=== PATIENT | female | born 1960 | race Caucasian/White ===

== ENCOUNTER 2024-11-19 17:44 | Emergency (ER) | payer MEDICARE, MEDICAID ==
[~2024-11-19] VITALS: Ht 147.3 cm; Wt 69.0 kg
[~2024-11-19 17:44] MED LIST: ATOR20TA MT; NITR-87 MT
[2024-11-19 17:48] VITALS: BP 157/75; RESP 16; TEMP 36.8; O2SAT 99
[2024-11-19 17:52] VITALS: PULSE 66; O2SAT 96
[2024-11-19] MEDS: FLUORESCEIN SODIUM 1MG/STRIP LEFTEYE ONE (20:49)
[2024-11-19] MEDS: TETRACAINE 0.5% OPHTH DROPS 4ML RIGHTEYE ONE (20:49)
[2024-11-19 20:54] LABS: BASOPHILS % 0.5 % (0.0-2.0); EOSINOPHILS % 1.5 % (0.0-5.0); HEMATOCRIT. 40.3 % (36.0-48.0); HEMOGLOBIN. 13.7 g/dL (12.0-16.0); LYMPHOCYTES % 38.7 % (20.0-50.0); MEAN CORPUSCULAR HGB CONC 33.9 g/dL (31.0-37.0); MEAN CORPUSCULAR VOLUME 85.7 fL (81.0-99.0); MEAN PLATELET VOLUME 9.4 fl (7.4-10.4); MONOCYTES % 7.5 % (2.0-8.0); NEUTROPHILS % 51.8 % (40.0-76.0); PLATELET 292 x1000/uL (130-400); RED CELL DISTRIBUTION WIDTH 14.5 % (11.6-14.6); WHITE BLOOD COUNT 7.7 x1000/uL (4.5-11.0)
[2024-11-19 21:03] LABS: CHLORIDE 104 mEq/L (98-107); POTASSIUM 4.1 mEq/L (3.5-5.1); SODIUM 141 mEq/L (136-145)
[2024-11-19 21:05] LABS: CALCIUM 9.7 mg/dL (8.7-10.4); CARBON DIOXIDE 30 mEq/L (21-32)
[2024-11-19 21:10] LABS: CREATININE 0.8 mg/dL (0.6-1.0); GLUCOSE 112 mg/dL (70-105); UREA NITROGEN BLOOD 11 mg/dL (9-23)
[2024-11-19 21:12] LABS: ALANINE AMINOTRANSFERASE 21 IU/L (10-49); ALBUMIN 4.3 g/dL (3.2-4.8); ASPARTATE AMINOTRANSFERASE 30 IU/L (<34); BILIRUBIN TOTAL 0.4 mg/dL (0.1-1.0); PROTEIN TOTAL 7.9 g/dL (6.0-8.3)
[2024-11-19 21:20] LABS: BILIRUBIN DIRECT < 0.1 mg/dL (<=3.0)
[2024-11-19] MEDS ORDERED: ERYT1OIN6 RIGHTEYE (22:23)
[2024-11-19] MEDS ORDERED: ACET-2708 MT (22:23)
== END 2024-11-19 22:53 | disposition home or self-care (01) ==
LOC: ER 17:44
DX: S05.02XA Injury of conjunctiva and corneal abrasion without foreign body, left eye, initial encounter (principal); S05.01XA Injury of conjunctiva and corneal abrasion without foreign body, right eye, initial encounter; K80.20 Calculus of gallbladder without cholecystitis without obstruction; Z79.899 Other long term (current) drug therapy; W44.F9XA Other object of natural or organic material, entering into or through a natural orifice, initial encounter; Y93.89 Activity, other specified; Y92.89 Other specified places as the place of occurrence of the external cause; Y99.8 Other external cause status
CPT/HCPCS: 36415; 76705; 80048; 80076; 85025; 99284

== ENCOUNTER 2025-03-15 21:40 | Emergency (ER) | payer BC, MEDICAID ==
[~2025-03-15] VITALS: Ht 147.3 cm; Wt 75.2 kg
[~2025-03-15 21:40] MED LIST changes: +ACET-2708 MT; +ERYT1OIN6 RIGHTEYE
[2025-03-15 21:42] VITALS: O2SAT 98
[2025-03-15 21:48] VITALS: PULSE 80; TEMP 36.9
[2025-03-16] MEDS ORDERED: FLUC150T46 MT (05:27)
[2025-03-16] MEDS ORDERED: LIDO700A30 TP (05:27)
[2025-03-16 05:49] VITALS: BP 142/75; RESP 16
[2025-03-16] MEDS: LIDOCAINE 5% PATCH TOP SCH (05:49)
== END 2025-03-16 06:18 | disposition home or self-care (01) ==
LOC: ER 21:40
DX: K80.20 Calculus of gallbladder without cholecystitis without obstruction (principal); B37.31 Acute candidiasis of vulva and vagina; N64.4 Mastodynia; M54.9 Dorsalgia, unspecified; Z79.899 Other long term (current) drug therapy
CPT/HCPCS: 71110; 99284

== ENCOUNTER 2025-09-09 18:50 | Emergency (ER) | payer BC ==
[~2025-09-09] VITALS: Ht 142.2 cm; Wt 80.7 kg
[~2025-09-09 18:50] MED LIST changes: +FLUC150T46 MT; +LIDO700A30 TP
[2025-09-09 19:28] VITALS: TEMP 36.9; O2SAT 99
[2025-09-09] MEDS: VISCOUS LIDOCAINE 2% 15 ML UDC MM PRN (20:55)
[2025-09-09] MEDS: MAGNESIUM/ALUMINUM HYDROXIDE/SIMETHICONE 30ML UDC PO ONE (20:55)
[2025-09-09 20:56] LABS: CLARITY URINE CLEAR (CLEAR); COLOR URINE YELLOW (YELLOW); GLUCOSE URINE NEGATIVE (NEGATIVE); KETONES URINE NEGATIVE (NEGATIVE); LEUKOCYTE ESTERASE URINE 1+ (NEGATIVE); NITRITE URINE NEGATIVE (NEGATIVE); OCCULT BLOOD URINE NEGATIVE (NEGATIVE); PH URINE 6.5 (4.5-8.0); PROTEIN URINE NEGATIVE (NEGATIVE); SPECIFIC GRAVITY URINE 1.020 (1.005-1.030); UROBILINOGEN URINE 0.2 E.U./dL (0.2-1.0)
[2025-09-09] MEDS: FAMOTIDINE 20MG TABLET PO SCH (20:56)
[2025-09-09 21:06] LABS: BASOPHILS % 0.5 % (0.0-2.0); EOSINOPHILS % 2.2 % (0.0-5.0); HEMATOCRIT. 40.8 % (36.0-48.0); HEMOGLOBIN. 13.5 g/dL (12.0-16.0); LYMPHOCYTES % 45.9 % (20.0-50.0); MEAN PLATELET VOLUME 9.8 fl (7.4-10.4); MONOCYTES % 6.9 % (2.0-8.0); NEUTROPHILS % 44.5 % (40.0-76.0); PLATELET 298 x1000/uL (130-400); RED BLOOD CELL COUNT 4.77 mill/uL (4.2-5.4); RED CELL DISTRIBUTION WIDTH 14.5 % (11.6-14.6)
[2025-09-09 21:12] LABS: PROTEIN TOTAL 7.5 g/dL (6.0-8.3)
[2025-09-09 21:12] LABS: TROPONIN I HIGH SENSITIVITY < 4 ng/L (3.0-34)
[2025-09-09 21:13] LABS: ASPARTATE AMINOTRANSFERASE 52 IU/L (<34); BILIRUBIN DIRECT < 0.1 mg/dL (<=3.0); BILIRUBIN TOTAL 0.3 mg/dL (0.1-1.0)
[2025-09-09 21:19] LABS: CREATININE 0.8 mg/dL (0.6-1.0); UREA NITROGEN BLOOD 14 mg/dL (9-23)
[2025-09-09] MEDS ORDERED: MAG355OR21 MT (21:45)
[2025-09-09] MEDS ORDERED: FAMO40TA70 MT (21:45)
[2025-09-09 21:59] VITALS: BP 130/63; PULSE 74; RESP 16; O2SAT 99
[2025-09-09 21:59] LABS: BACTERIA URINE TRACE; RBC URINE NONE SEEN /hpf (0-2); SQUAMOUS EPITHELIAL CELL URINE 1+ /lpf (RARE/1+); WBC URINE 0-2 /hpf (0-2)
== END 2025-09-09 22:01 | disposition home or self-care (01) ==
LOC: ER 18:50
DX: K21.9 Gastro-esophageal reflux disease without esophagitis (principal); K80.10 Calculus of gallbladder with chronic cholecystitis without obstruction; Z79.899 Other long term (current) drug therapy
CPT/HCPCS: 36415; 71045; 76705; 80048; 80076; 81003; 84484; 85025; 93005; 99285